=== PATIENT | female | born 1990 | race Caucasian/White ===

== ENCOUNTER 2017-01-17 16:59 | Emergency (ER) | payer OTHER | END 2017-01-17 20:35 | disposition home or self-care (01) | LOC: ER 16:59 | DX: S60.221A Contusion of right hand, initial encounter (principal); W19.XXXA Unspecified fall, initial encounter; Y92.009 Unspecified place in unspecified non-institutional (private) residence as the place of occurrence of the external cause | CPT/HCPCS: 73130; 99070; 99283-25 ==